=== PATIENT | male | born 1960 | race Native Hawaiian/Other Pacific Islander ===

== ENCOUNTER 2017-04-29 09:48 | Emergency (ER) | payer OTHER ==
[2017-04-29 09:48] VITALS: BMI 21.5
[2017-04-29] MEDS ORDERED: Dextrose 50% VIAL Inj (50 ml) IV ONE (10:15)
[2017-04-29 10:20] VITALS: TEMP 97.6
[2017-04-29] MEDS: Dextrose 50% SYRINGE Inj (50 ml) IV STA (10:20)
--- NOTE | 2017-04-29 10:44 | RAD ---
HISTORY: Diabetic COMPARISON: Chest x-ray performed 02/15/14 TECHNIQUE: Chest, one view. FINDINGS: LUNGS: No focal consolidation. Please note that chest x-ray has limited sensitivity for the detection of pulmonary masses. PLEURA: No significant pleural effusion identified. No definite pneumothorax . CARDIOVASCULAR: The cardiomediastinal silhouette appears within normal limits of size. OSSEOUS STRUCTURES: No acute osseous abnormality identified. VISUALIZED UPPER ABDOMEN: Unremarkable. OTHER FINDINGS: None. IMPRESSION: No focal consolidation, significant pleural effusion, or definite pneumothorax identified.
[2017-04-29 10:51] LABS: BASO % 0.3 % (0.0-2.0); EOS % 0.3 % (0.0-4.0); HEMOGLOBIN 10.1 g/dL (12.0-18.0); LYMPH % 10.6 % (20.0-40.0); MEAN CELL VOLUME 66.7 fL (80.0-94.0); MEAN CORPUSCULAR HGB CONC 31.5 g/dL (33.0-37.0); MEAN PLATELET VOLUME 8.1 fL (7.2-11.7); MONO # 0.8 K/uL (0.0-0.8); MONO % 8.2 % (0.0-10.0); NEUT # 7.6 K/uL (1.8-7.0); NEUT % 80.6 % (50.0-75.0); RBC 4.82 Mil/uL (4.40-5.90); RED CELL DISTRIBUTION WIDTH 19.4 % (11.5-14.5); WHITE BLOOD COUNT 9.4 K/uL (4.8-10.8)
--- NOTE | 2017-04-29 11:47 | C.PDOC ---
History Of Present Illness 57-year-old male, PMHx includes Diabetes, presents to the emergency department via BLS. with complaints of this morning his blood sugar low found to be 20, and he was lethargic. Patient received an AMP of D50, and has now improved. No other complaints at this time. Time Seen by Provider: 04/29/17 10:16 Chief Complaint (Nursing): Altered Mental Status History Per: Patient, EMS, Family History/Exam Limitations: None Onset Of Symptoms: Other (prior to arrival) Current Symptoms Are (Timing): Still Present Past Medical History Reviewed: Historical Data, Nursing Documentation, Vital Signs Vital Signs: Last Vital Signs Temp 97.6 F 04/29/17 10:28 Pulse 93 H 04/29/17 12:15 Resp 17 04/29/17 12:15 BP 113/68 04/29/17 12:15 Pulse Ox 96 04/29/17 18:30 - Medical History PMH: Diabetes (diat controlled) Surgical History: Coronary Stent - [facility] CORONAR ARTERIOGR-2 CATH (02/15/14) INFLUENZA VACCINATION (02/15/14) LEFT HEART CARDIAC CATH (02/15/14) LT HEART ANGIOCARDIOGRAM (02/15/14) VACCINATION NEC (02/15/14) Family History: States: No Known Family Hx - Social History Hx Tobacco Use: No Hx Alcohol Use: Yes Hx Substance Use: No Review Of Systems Except As Marked, All Systems Reviewed And Found Negative. Constitutional: Negative for: Fever, Chills Cardiovascular: Negative for: Chest Pain Respiratory: Negative for: Shortness of Breath Gastrointestinal: Negative for: Nausea, Vomiting Musculoskeletal: Negative for: Back Pain Neurological: Negative for: Weakness, Numbness, Headache, Dizziness Physical Exam - Physical Exam Appears: Non-toxic, No Acute Distress Skin: Warm, Dry, No Rash Head: Atraumatic, Normacephalic Eye(s): bilateral: Normal Inspection, PERRL Nose: Normal Oral Mucosa: Moist Lips: Normal Appearing Neck: Normal ROM Cardiovascular: Rhythm Regular, No Murmur Respiratory: Normal Breath Sounds, No Accessory Muscle Use Gastrointestinal/Abdominal: Soft, No Tenderness Back: Normal Inspection Extremity: Normal ROM Neurological/Psych: Oriented x3, Normal Speech ED Course And Treatment - Laboratory Results Result Diagrams: 04/29/17 10:41 04/29/17 10:41 O2 Sat by Pulse Oximetry: 96 (on RA) Pulse Ox Interpretation: Normal Medical Decision Making Medical Decision Making: The patient was observed in the ED. Patient had 2 meals and is tolerating po WELL. Ambulatory in the ED with steady gait. The case was discussed with Dr. Clementine Wharton who agrees that the sugars have remained elevated and patient can be discharged home. Will see the patient in the office in 1-2 days. Disposition - Disposition Referrals: Nai Wharton MD [Staff Provider] - Disposition: HOME/ ROUTINE Disposition Time: 13:11 Condition: FAIR Additional Instructions: Follow up with the medical doctor within 1-2 days. Return if worsened. Instructions: Diabetic Hypoglycemia (ED) Forms: [employer] (Telugu) - Clinical Impression Clinical Impression: Hypoglycemia - Scribe Statement The provider has reviewed the documentation as recorded by the Scribe (Preet Gonzalez) All medical record entries made by the Scribe were at my direction and personally dictated by me. I have reviewed the chart and agree that the record accurately reflects my personal performance of the history, physical exam, medical decision making, and the department course for this patient. I have also personally directed, reviewed, and agree with the discharge instructions and disposition.
[2017-04-29 11:52] LABS: ALB/GLOB RATIO 1.2 (1.0-2.1); ALBUMIN 4.4 g/dL (3.5-5.0); ALT/SGPT 23 U/L (21-72); AST/SGOT 48 U/L (17-59); BLOOD UREA NITROGEN 9 mg/dL (9-20); CALCIUM 8.3 mg/dl (8.6-10.4); GFR AFRICAN-AMERICAN > 60; GFR NON-AFRICAN AMERICAN > 60
[2017-04-29 12:28] VITALS: BP 113/68; PULSE 93; RESP 17
[2017-04-29 13:10] VITALS: O2SAT 96
== END 2017-04-29 13:29 | disposition home or self-care (01) ==
LOC: C.ER 09:48
DX: E11.649 Type 2 diabetes mellitus with hypoglycemia without coma (principal)